=== PATIENT | male | born 1980 | race Asian ===

== ENCOUNTER 2021-04-10 13:06 | Emergency (ER) | payer MEDICAID ==
[~2021-04-10] VITALS: Ht 175.3 cm; Wt 86.0 kg
[2021-04-10] MEDS ORDERED: BENZ1TAB7 PO (15:23)
[2021-04-10] MEDS ORDERED: DIVA-75 MT (15:23)
[2021-04-10] MEDS ORDERED: OLAN20TA34 MT (15:23)
[2021-04-10 16:22] VITALS: BP 112/48
== END 2021-04-10 16:24 | disposition home or self-care (01) ==
LOC: ER 13:06
DX: Z76.0 Encounter for issue of repeat prescription (principal); F20.9 Schizophrenia, unspecified; G47.00 Insomnia, unspecified
CPT/HCPCS: 99281